=== PATIENT | female | born 1975 | race Caucasian/White ===

== ENCOUNTER → 2020-10-31 | Outpatient (CLI) | payer BC | LOC: COL.RAD 07:02 | DX: K76.0 Fatty (change of) liver, not elsewhere classified (principal) ==

== ENCOUNTER 2022-04-18 06:19 | Day surgery (SDC) | payer BC ==
[~2022-04-18] VITALS: Ht 157.5 cm; Wt 83.1 kg
[2022-04-18 06:46] VITALS: BP 136/84; PULSE 84; TEMP 97.9
[2022-04-18] MEDS ORDERED: XOLAIR150 MG/1 M SQ (06:50)
[2022-04-18] MEDS ORDERED: EUTHYROX50 MCG PO (06:50)
[2022-04-18 08:00] VITALS: BP 98/74; PULSE 98
--- NOTE | 2022-04-18 08:00 | NUR ---
PATIENT RETURNS TO [place] [facility] PER CART AFTER HAVING COLONOSCOPY AND CONSENT SIGNED. TRANSFERRED FROM CART TO RECLINER WITH ONE PERSON ASSIST. IV FLUIDS INFUSING. DENIES ABDOMINAL OR ANY NAUSEA. SIPPING ON SPRITE. SPOUSE IN ROOM. DR. SILVA IN THE ROOM AND TALKS WITH SPOUSE. ALL QUESTIONS ANSWERED.
[2022-04-18 08:15] VITALS: BP 110/75; PULSE 78
--- NOTE | 2022-04-18 08:15 | NUR ---
TOLERATED SPRITE. DENIES NAUSEA. STATES THAT SHE IS READY FOR DISCHARGE AND IV DISCONTINUED. DRESSES SELF. GAIT STEADY.
--- NOTE | 2022-04-18 08:35 | NUR ---
DISMISSAL INSTRUCTIONS GIVEN AND SIGNED. VOICES UNDERSTANDING OF HOME CARES. PROVIDED OFFICE NUMBER FOR QUESTIONS AND CONCERNS.
--- NOTE | 2022-04-18 08:38 | NUR ---
PATIENT DISMISSED TO HOME PER PRIVATE VEHICLE DRIVEN BY SPOUSE AND TAKEN TO THE FRONT DOOR PER WHEELCHAIR AND ASSISTED INTO VEHICLE. DISMISSAL INSTRUCTIONS IN HAND.
== END 2022-04-18 08:38 | disposition home or self-care (01) ==
LOC: SDCO 06:19
DX: Z12.11 Encounter for screening for malignant neoplasm of colon (principal)
CPT/HCPCS: J2704; J7120

== ENCOUNTER → 2022-04-26 | Outpatient (CLI) | payer BC ==
[~2022-04-26] MED LIST: EUTHYROX50 MCG PO; XOLAIR150 MG/1 M SQ
== END ==
LOC: MC.RAD 08:04
DX: Z12.31 Encounter for screening mammogram for malignant neoplasm of breast (principal)